=== PATIENT | male | born 1955 | race Caucasian/White ===

== ENCOUNTER 2019-05-26 10:24 | Day surgery (SDC) | payer BC ==
[~2019-05-26 10:24] MED LIST: Lactated Ringers 1,000 ML IV SCH
[2019-05-26] MEDS ORDERED: DIPRIVAN 200 MG/20 ML IV ONE ×3 (13:48→14:33)
[2019-05-26] MEDS ORDERED: Lactated Ringers 1,000 ML IV ONE (14:32)
[2019-05-26 15:16] VITALS: O2SAT 98
[2019-05-26 15:57] VITALS: BP 139/76; PULSE 72
--- NOTE | 2019-05-27 08:57 | OP ---
PROCEDURE DATE/TIME: 05/26/2019 1353 PREOPERATIVE DIAGNOSES: 1) Abdominal pain. 2) Positive Cologuard test. POSTOPERATIVE DIAGNOSES: 1) Esophageal lesion at 23 cm removed with biopsy forceps, pathology pending. 2) Reflux disease, biopsies pending to rule out Moody's. 3) No obvious hiatal hernia. 4) Mild amount of gastric polyps. 5) Mild gastritis. 6) Normal duodenum. 7) Mild colonic diverticulosis. 8) Mild external hemorrhoidal disease with mild to moderate internal hemorrhoidal disease and suspected maybe the cause of positive Cologuard test and colonic polyps. PROCEDURES: 1) EGD with biopsy. 2) Colonoscopy with hot snare polypectomy x2 and hot forceps polypectomy x1. PROCEDURE PERFORMED BY: Sena Reina M.D. ANESTHESIA: MAC. ESTIMATED BLOOD LOSS: Minimal. COMPLICATIONS: None. SPECIMENS: 1) Esophageal lesion at 23 cm. Distal esophageal biopsy to rule out Moody's disease. 2) Gastric body polyp. 3) Antral biopsy. 4) Splenic flexure polyp taken with hot forceps. 5) Sigmoid polyp at 23 cm taken with hot snare. 6) Distal sigmoid polyp at 20 cm taken with hot snare. HISTORY: This is a gentleman who presents for EGD and colonoscopy due to abdominal pain and a positive Cologuard test. Risks, benefits, alternatives to EGD and colonoscopy details, H&P, consent all reviewed with him and confirmed prior to the procedure. DESCRIPTION OF PROCEDURE: He was then brought back to the endoscopy suite. Laid in the left lateral decubitus position. A complete time out performed. The scope gently introduced into the mouth, oropharynx, down to the esophagus, stomach and duodenum. The duodenum was normal. In the stomach, he had mild antral and lower gastric body gastritis. He had one small polyp in his gastric body which was taken with hot forceps in entirety that was inflammatory. He had other even smaller, tiny gastric polyps noted throughout his stomach but these were extremely minimal. The largest one was removed and this was done with cold forceps and confirmed hemostasis. I also took an antral biopsy to rule out Helicobacter pylori and this was also confirmed to be hemostatic as well. On retroflex view his hiatus looked appropriate. No sign of obvious hiatal hernia. Scope was then carefully withdrawn. He does have some reflux changes with some mild distal esophagitis from reflux disease at the gastroesophageal junction. I again do not see hiatal hernia. He may have possible early Moody's disease here. I took multiple biopsies targeted each of the areas of inflammation in his distal esophagus. He only had about 0.5 cm of inflammatory change in the distal esophageal region. We then carefully withdrew the scope. The remainder of the esophagus looked normal except for one small benign appearing esophageal plaque at 23 cm this was removed with cold forceps and sent to pathology. All biopsy sites were confirmed hemostatic and then the scope was completely withdrawn. The patient tolerated the procedure well. The patient was then repositioned for colonoscopy. On rectal exam the patient does have palpable internal and external hemorrhoids. These are soft. He has one slightly irritated hemorrhoid which may have been the culprit of bleeding but is not actively bleeding right now. He has no concerning masses in his anorectal region and he has no old blood on rectal exam or fresh blood. The scope was then inserted and gently advanced to the level of the cecum. In the cecum the appendiceal orifice and ileocecal valve were identified. I peeked into the ileocecal valve and his immediate terminal ileum looked normal. We then carefully withdrew the scope taking a circumferential view. He did have liquid stool throughout his colon. He did have a small amount of solid stool however this was minimal. I did irrigate and we were able to get a satisfactory view to check for any concerning polyps. He also had diverticulosis and polyps. His ascending and transverse colon were normal. In the descending and sigmoid colon, he had mild diverticulosis. He had a splenic flexure polyp which was taken in entirety with hot forceps. It was small, flat and benign appearing taken in entirety, retrieved and sent for pathology. He also had a sigmoid polyp at 23 cm which was semi-pedunculated, moderate size approximately 8 mm and he had a distal sigmoid polyp at about 20 cm. The distal sigmoid polyp was much more flat approximately 8 mm diameter. The sigmoid polyp at 23 cm was semi-pedunculated and about the same size but more raised. Both of these lesions looked benign on gross view. They were taken each with hot snare separately. Both sites confirmed to be hemostatic. Polyps removed in entirety, retrieved and sent to pathology. The scope is then further withdrawn. The patient tolerated the procedure very well. There were no immediate complications. 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 2) Plan for repeat colonoscopy in approximately three years secondary to polyps. 3) I have not determined the exact cause for the positive Cologuard test. The patient may need further studies due to his abdominal pain and positive Cologuard test such as a small bowel follow through or PillCam study. 4) The patient needs a CT of his chest. He had some incidental lung findings noticed on his left lung base on his CT scan and we will check a full CT of his chest to see if there are any other concerning findings here.
== END 2019-05-26 16:00 | disposition home or self-care (01) ==
LOC: SDC 10:24
PROVIDERS: ATTEND Surgery
DX: Z12.11 Encounter for screening for malignant neoplasm of colon (principal); R10.9 Unspecified abdominal pain; K29.70 Gastritis, unspecified, without bleeding; K31.7 Polyp of stomach and duodenum; K63.5 Polyp of colon; K57.30 Diverticulosis of large intestine without perforation or abscess without bleeding; K64.4 Residual hemorrhoidal skin tags; K64.8 Other hemorrhoids; K22.9 Disease of esophagus, unspecified; K21.0 Gastro-esophageal reflux disease with esophagitis
CPT/HCPCS: 88305; J2704

== ENCOUNTER 2021-03-21 09:25 | Day surgery (SDC) | payer BC, MEDICARE ==
[2021-03-21] MEDS ORDERED: Lactated Ringers 1,000 ML IV ONE ×2 (09:48→12:45)
[2021-03-21] MEDS ORDERED: Lactated Ringers 1,000 ML IV SCH (10:00)
--- NOTE | 2021-03-21 10:21 | HP ---
DATE OF SURGERY: 03/21/2021 HISTORY OF PRESENT ILLNESS: This is a patient who is having some abdominal pain as well as reflux. His pain is most significant in his mid and lower abdominal region. It was not explained by his recent CT scan. He denies any blood. He does have occasional mild constipation and occasional diarrhea. He has no urinary symptoms. No hematuria. He is not having any chest pain or shortness of breath. He did have a cough and is coughing less this is chronic. PAST MEDICAL/SURGICAL HISTORY: Includes hypertension, reflux, cholecystectomy. MEDICATIONS: Medications reviewed and in the medication reconciliation. ALLERGIES: NKDA. SOCIAL HISTORY: No tobacco. No alcohol use. FAMILY HISTORY: Hypertension, diabetes. PHYSICAL EXAMINATION: GENERAL: No acute distress. CVS: Regular rate and rhythm. PULMONARY: Nonlabored. ABDOMEN: Soft, mild tenderness to palpation in the mid upper abdomen. EXTREMITIES: Chronic skin changes. DIAGNOSIS: Reflux, abdominal pain. PLAN: EGD and colonoscopy.
[2021-03-21] MEDS ORDERED: Xylocaine-Mpf 2% 5 Ml Vial ONE (11:54)
[2021-03-21] MEDS ORDERED: DIPRIVAN 200 MG/20 ML IV ONE ×2 (11:54→12:21)
[2021-03-21 13:38] VITALS: BP 124/75; PULSE 60; O2SAT 99
[2021-03-21 15:32] LABS: 027 TOX PROD PRESUMPTIVE NEGATIVE (NEGATIVE); TOXIGENIC C. DIFF ORG NEGATIVE (NEGATIVE)
--- NOTE | 2021-04-12 11:19 | OP ---
PROCEDURE DATE/TIME: 03/21/2021 1157 PREOPERATIVE DIAGNOSES: 1) Abdominal pain. 2) Reflux. POSTOPERATIVE DIAGNOSES: 1) Minimal sigmoid colitis. 2) Diverticulosis. 3) Internal hemorrhoidal disease (moderate). 4) Small benign anal tag. 5) Small hiatal hernia. 6) Mild gastritis. 7) Irregular duodenal mucosa at the papilla, biopsy pending. PROCEDURES: 1) EGD with biopsy. 2) Colonoscopy with biopsy. PROCEDURE PERFORMED BY: Sena Reina M.D. ANESTHESIA: MAC. HISTORY: This is a gentleman who presents for EGD and colonoscopy. Risks, benefits and alternatives regarding EGD and colonoscopy discussed with him in detail. H&P and consent reviewed with him and confirmed. DESCRIPTION OF PROCEDURE: He was brought back to the endoscopy suite, laid in the left lateral decubitus position. A complete time out performed. The scope gently introduced into the mouth, oropharynx, down into the esophagus, stomach and duodenum. At the papilla there is some slightly irregular duodenal mucosa and this was biopsied. This may be baseline for him or be related to duodenitis this was sent for pathology. This site looked hemostatic. He also had some mild gastritis and he was biopsied in the antrum and this was sent to pathology also to rule out Helicobacter pylori. There were no other masses or lesions of concern in the stomach. There are no ulcers. On retroflex view he does have a small hiatal hernia. We then carefully withdrew the scope after insuring hemostasis. No sign of Moody's disease. The remainder of the esophagus is normal. The scope completely removed. The patient tolerated the procedure very well. No immediate complications. The patient was then repositioned for colonoscopy. First a rectal exam was done. The patient does have some minimal anal tag disease as well as some internal hemorrhoids. All of this is benign. The scope was then inserted and gently advanced to the level of the cecum and carefully withdrawn after confirming the anatomy. The ileocecal valve as well as the appendiceal orifice were clearly defined. Overall the prep was satisfactory. Over 90% of the mucosa was visualized but I would only give him five year path and not a ten year path due to stool still being remaining in the colon despite irrigation. A very small or flat lesion could be missed due to imperfect prep but overall the prep was satisfactory for general exam. The ascending, transverse and proximal descending of the colon were normal. However, he did have some diverticulosis most significant in the sigmoid colon. He also had a trace amount of sigmoid colitis extending about 5 cm at the region of 40 cm in the sigmoid colon this was very minimal. I did biopsy this and sent it to pathology. It did not appear to be associated with any specific diverticula. The scope was then withdrawn back into the rectum. The hemorrhoid tissue was visualized. There are no masses of concern here. The scope was then completely removed. The patient tolerated the procedure well. There were no immediate complications. He is going to be following up with me as an outpatient to discuss his EGD and his colonoscopy. PLAN: Colonoscopy in five years. EGD pending pathology results.
== END 2021-03-21 13:47 | disposition home or self-care (01) ==
LOC: SDC 09:25
PROVIDERS: ATTEND Surgery
DX: K52.9 Noninfective gastroenteritis and colitis, unspecified (principal); K57.30 Diverticulosis of large intestine without perforation or abscess without bleeding; K64.8 Other hemorrhoids; K44.9 Diaphragmatic hernia without obstruction or gangrene; K29.70 Gastritis, unspecified, without bleeding; K64.4 Residual hemorrhoidal skin tags
CPT/HCPCS: 87045; 87046; 87328; 87329; 87493; 88305; J2704

== ENCOUNTER 2021-12-19 08:26 | Day surgery (SDC) | payer MEDICARE ==
[2021-12-19] MEDS ORDERED: Lactated Ringers 1,000 ML IV SCH (09:30)
[2021-12-19 09:49] LABS: Hemoglobin 15.1 gm/dl (12.5-18.0); Mean Cell Volume 87.7 fl (78-100); Mean Corpuscular Hemoglobin 29.4 pg (26-32); Mean Corpuscular Hgb Concent. 33.6 g/dl (32-36); Mean Platelet Volume 9.7 fl (7.5-11.0); Platelet Count 241 K/mm3 (150-450); Red Blood Count 5.13 M/mm3 (4.1-5.6); Red Cell Distribution Width 13.5 % (11.5-14.0); White Blood Count 6.2 K/mm3 (4.0-10.5)
[2021-12-19 09:59] LABS: ANION GAP 13.1 MEQ/L (5-15); BLOOD UREA NITROGEN 18 mg/dL (9-20); CHLORIDE 101 mmol/L (98-107); Calcium 9.2 mg/dL (8.4-10.2); Carbon Dioxide 28 mmol/L (22-30); Creatinine 1 0.99 mg/dL (0.66-1.25); EST GLOMERULAR FILTRATION RATE > 60.0 ML/MIN; Glucose 122 mg/dL (74-106); Potassium 4.1 mmol/L (3.5-5.1); SODIUM 138 mmol/L (137-145)
--- NOTE | 2021-12-19 10:34 | HP ---
HISTORY OF PRESENT ILLNESS: This is a gentleman who is having persistent upper abdominal pain with no lower GI pain, no lower abdominal pain, no chest pain, no shortness of breath, no cough, no weight loss. He has had about five pounds of weight gain, he states. He is eating well. His bowel movements are normal. PAST MEDICAL/SURGICAL HISTORY: Includes diverticulosis, hypertension, back pain, gallbladder surgery and gastritis. MEDICATIONS: Medications reviewed in the chart in medication reconciliation. ALLERGIES: NKDA. FAMILY HISTORY: Negative for colorectal cancer. History for thyroid and kidney cancer. Dad with coronary artery disease. SOCIAL HISTORY: No tobacco. No alcohol use. PHYSICAL EXAMINATION: GENERAL: No acute distress. CVS: Regular rate and rhythm. PULMONARY: Nonlabored. ABDOMEN: Soft, mild tenderness to palpitation in epigastric region. No rebound. No guarding. EXTREMITIES: Normal. DIAGNOSIS: Upper abdominal pain. PLAN: EGD.
[2021-12-19] MEDS ORDERED: DIPRIVAN 200 MG/20 ML IV ONE ×2 (12:09→12:29)
[2021-12-19 13:13] VITALS: BP 133/70; PULSE 68; O2SAT 98
--- NOTE | 2021-12-20 09:32 | OP ---
PROCEDURE DATE/TIME: 12/19/2021 1205 PREOPERATIVE DIAGNOSES: Persistent upper abdominal pain. POSTOPERATIVE DIAGNOSIS: Mildly prominent duodenal ampulla hiatal hernia. PROCEDURE: EGD with biopsy. PROCEDURE PERFORMED BY: Sena Reina M.D. ESTIMATED BLOOD LOSS: Minimal. ANESTHESIA: MAC. SPECIMEN: Duodenum; rule out celiac disease including biopsies from D1 through proximal D3, periampullary biopsies and gastric antrum; rule out Helicobacter pylori. COMPLICATIONS: None. HISTORY: This is a 66-year-old gentleman who has had a significant work up for abdominal pain and continues to have persistent abdominal pain. He has had a slightly more prominent ampulla that was noted on previous EGD but all of his other testing has been normal. He reports that his pain has become more significant and persistent and we have discussed repeating an EGD and he would like to proceed. H&P and consent reviewed with him and confirmed. DESCRIPTION OF PROCEDURE: He was brought to the endoscopy suite, laid in the left lateral decubitus position. A complete time out performed. First, the scope was inserted and gently advanced into the oropharynx down into the esophagus, stomach and duodenum. We reached the level of approximately the junction of the D2 and D3 and what can be seen of D3 appears to be normal. We cannot see the entire third portion of the duodenum. The second portion and the first portion of the duodenum also appeared normal. I took biopsies throughout to rule out celiac disease due to his persistent symptoms. His ampulla was visualized and pictures taken this is slightly prominent. However, it looked quite normal to me. On the edge of the ampulla, there is a very subtle slight possible erythema and so we biopsied this edge and sent this to pathology. The site looked hemostatic. The scope was then withdrawn into the stomach. After confirming hemostasis, the antrum looked very healthy. The scope was retroflexed. The remainder of the body of the stomach and cardia all looked quite healthy. He has a small hiatal hernia that was visualized but other than that I do not see any significant gastritis. Due to his symptoms however, I took an antral biopsy with cold forceps and sent this to pathology. The scope was then carefully withdrawn into the distal esophagus. The distal esophagus is at 39.5 cm. The gastroesophageal junction was identified at 39.5 cm. There was no inflammation here. The mucosa looked healthy. No sign of Moody's disease. The scope was then fully withdrawn. The remainder of the esophagus looked normal and the scope was completely removed. The patient tolerated the procedure very well. No immediate complications. I have discussed all of his findings with his family and he will be following up with me for further work up as well as his pathology results.
== END 2021-12-19 13:20 | disposition home or self-care (01) ==
LOC: SDC 08:26
PROVIDERS: ATTEND Surgery
DX: K44.9 Diaphragmatic hernia without obstruction or gangrene (principal); R10.10 Upper abdominal pain, unspecified; I10 Essential (primary) hypertension; Z85.850 Personal history of malignant neoplasm of thyroid; Z85.528 Personal history of other malignant neoplasm of kidney
CPT/HCPCS: 36415; 80048; 85027; 93005; 99100; J2704